=== PATIENT | female | born 1985 | race Two or more races ===

== ENCOUNTER → 2018-08-28 | Emergency (ER) | payer MEDICAID ==
[~2018-08-28] VITALS: Ht 165.1 cm; Wt 67.1 kg
[~2018-08-28] MED LIST: KETOROLAC TROMETH 60MG/2ML VIAL IM ONE; ONDANSETRON ODT 4 MG TAB PO ONE; methylPREDNISolone SOD SUCC 125 MG/2 ML VL IM ONE
[2018-08-28 22:02] VITALS: BP 155/86
== END | disposition home or self-care (01) ==
LOC: ER 21:50
DX: M51.06 Intervertebral disc disorders with myelopathy, lumbar region (principal)
CPT/HCPCS: 72131; 96372; 99284; J1885; J2930; Q0162